=== PATIENT | male | born 1975 | race African-American/Black ===

== ENCOUNTER 2019-12-24 20:16 | Emergency (ER) | payer BC, OTHER ==
[~2019-12-24] VITALS: Ht 180.3 cm; Wt 99.8 kg
[~2019-12-24 20:16] MED LIST: NOHOMEMEDICATIONS
[2019-12-24 21:39] VITALS: BP 137/80
== END 2019-12-24 21:36 | disposition home or self-care (01) ==
LOC: ER 20:16
DX: S00.03XA Contusion of scalp, initial encounter (principal); Z87.891 Personal history of nicotine dependence; W20.8XXA Other cause of strike by thrown, projected or falling object, initial encounter; Y93.89 Activity, other specified; Y92.89 Other specified places as the place of occurrence of the external cause; Y99.8 Other external cause status